=== PATIENT | female | born 1965 | race Caucasian/White ===

== ENCOUNTER 2017-07-24 16:39 | Emergency (ER) | payer BC ==
[~2017-07-24] VITALS: Ht 162.6 cm; Wt 73.0 kg
[2017-07-24 16:46] VITALS: BP 159/85
[2017-07-24] MEDS ORDERED: LIDOcaine 1.5% w/epinephrine 1:200,000 5ml ampul IJ ONE (17:00)
[2017-07-24] MEDS ORDERED: TETanus/Pertussis (Acell)/Diphther VAC/PF (Tdap-Adult) 0.5ml syringe IM ONE (17:00)
[2017-07-24] MEDS ORDERED: acetaminophen 325mg tablet PO ONE (17:55)
== END 2017-07-24 18:03 | disposition home or self-care (01) ==
LOC: ER 16:40
DX: S01.81XA Laceration without foreign body of other part of head, initial encounter (principal); W01.0XXA Fall on same level from slipping, tripping and stumbling without subsequent striking against object, initial encounter; Y93.89 Activity, other specified; Y92.89 Other specified places as the place of occurrence of the external cause; Y99.8 Other external cause status
CPT/HCPCS: 12013; 90471; 90715; 99283; A6449; J3490

== ENCOUNTER 2021-10-26 06:37 | Day surgery (SDC) | payer BC ==
[2021-10-21 15:44] LABS: ALBUMIN 3.9 G/DL (3.4-5.0); ALBUMIN/GLOBULIN RATIO 1.2 (1.1-1.5); ALKALINE PHOSPHATASE 94 IU/L (46-116); BLOOD UREA NITROGEN 17 MG/DL (7-18); BUN/CREATININE RATIO 21.3 (6.6-38.0); CALCIUM 8.7 MG/DL (8.5-10.1); CHLORIDE 104 MMOL/L (99-107); PRE OP ALT 25 U/L (30-65); PRE OP ANION GAP 11 (8-16); PRE OP AST 20 U/L (10-37); PRE OP BILIRUB, TOTAL 0.3 MG/DL (0.0-1.0); PRE OP GLUCOSE 88 MG/DL (70-104); PRE OP POTASSIUM 3.8 MMOL/L (3.4-5.1); PRE OP SODIUM 141 MMOL/L (135-145); TOTAL CARBON DIOXIDE 25.7 MMOL/L (24-32); TOTAL PROTEIN 7.1 G/DL (6.4-8.2); eGFR 74 ML/MIN
[2021-10-21 15:51] LABS: BASOPHILS # (AUTO) 0.1 X10'3 (0-0.2); BASOPHILS % (AUTO) 0.8 % (0-1); EOSINOPHILS # (AUTO) 0.5 X10'3 (0-0.9); LYMPHOCYTES # (AUTO) 2.7 X10'3 (1.1-4.8); LYMPHOCYTES % (AUTO) 39.6 % (21-51); MEAN CORPUSCULAR HEMOGLOBIN 31.5 PG (27.0-31.0); MEAN CORPUSCULAR HGB CONC 33.7 g/dL (33.0-36.5); MEAN CORPUSCULAR VOLUME 93.4 FL (78-98); MEAN PLATELET VOLUME 9.3 FL (7.4-10.4); MONOCYTES # (AUTO) 0.3 X10'3 (0-0.9); MONOCYTES % (AUTO) 4.5 % (2-12); NEUTROPHILS # (AUTO) 3.2 X10'3 (1.8-7.7); NEUTROPHILS % (AUTO) 48.1 % (42-75); PRE OP HEMOGLOBIN 13.8 g/dL (12.0-16.0); PRE OP PLATELET COUNT 255 X10'3 (140-440); RED BLOOD COUNT 4.39 X10'6 (4.20-5.60); RED CELL DISTRIBUTION WIDTH 12.8 % (11.5-14.5)
[~2021-10-26] VITALS: Ht 162.6 cm; Wt 78.8 kg
[~2021-10-26 06:37] MED LIST: ATOR10TA PO; DOCUMENT DATE & TIME OF BETA-BLOCKER PO ONE; GABA300C PO; PROP40SO PO; TOPI50TA PO; ceFAZolin inj. 2,000 MG in dextrose 5%-water 100 ML IV ONE; famotidine 20mg tablet PO ONE; ringers solution, lacted 1,000 ML IV SCH
[2021-10-26 06:50] VITALS: BP 157/75
[2021-10-26] MEDS ORDERED: LIDOcaine 1% (10mg/ml) 2ml vial ONE (07:49)
[2021-10-26] MEDS ORDERED: BUPIVAcaine/PF 2.5mg/ml (0.25%) 10ml vial ONE (08:05)
[2021-10-26] MEDS ORDERED: RISA150S2 SQ (08:24)
[2021-10-26] MEDS ORDERED: LIDOcaine 0.5% (5mg/ml) 50ml vial ONE (09:35)
[2021-10-26] MEDS ORDERED: fentaNYL/PF 50MCG/1 ML 2ML syringe ONE (10:15)
[2021-10-26] MEDS ORDERED: midazolam 1 mg/ML 2ml injection ONE (10:16)
[2021-10-26] MEDS ORDERED: ondansetron/PF 4mg/2ml inj IV PRN (11:15)
[2021-10-26] MEDS ORDERED: morphine 4 MG/ML inj SYRINge IV PRN (11:15)
[2021-10-26] MEDS ORDERED: proCHLORperazine 10 MG/2 ml inj IV PRN (11:15)
[2021-10-26] MEDS ORDERED: morphine 2 MG/ML inj. syringe IV PRN (11:15)
[2021-10-26] MEDS ORDERED: meperidine/PF 25mg/ml syringe IV PRN ×3 (11:15)
[2021-10-26] MEDS ORDERED: ringers solution, lacted 1,000 ML IV SCH (11:15)
[2021-10-26] MEDS ORDERED: propofol inj 20 ML IV ONE (11:25)
[2021-10-26 11:32] VITALS: BP 158/85
--- NOTE | 2021-10-26 11:32 | NUR ---
Received from OR via [facility], accompanied by Anesthesiologist DENISSE and report given by Anesthesiolgist. PT AAOX4, NO COMPLAINTS OF PAIN, ON RA. VSS. DRESSING TO LEFT WRIST CLEAN DRY AND INTACT. Addendum: 10/26/21 at 1147 by Hubert Levy RN Amended: Links added.
[2021-10-26 11:40] VITALS: BP 150/78
[2021-10-26 11:50] VITALS: BP 144/79
[2021-10-26 12:00] VITALS: BP 142/79
--- NOTE | 2021-10-26 12:12 | NUR ---
PT OUT OF RR VIA WHEELCHAIR, PT AAOX4, INDEPENDENT IN AMBULATION, STEADY NARROW GAIT. NO COMPLAINTS OF PAIN, DC PAPERWORK AND VERBAL DC PROVIDED, QUESTIONS ADDRESSED. IV REMOVED. TO POV WITH LAP MACHINE OPERATOR, WITHOUT INCIDENT Addendum: 10/26/21 at 1227 by Hubert Levy RN Amended: Links added.
== END 2021-10-26 12:12 | disposition home or self-care (01) ==
LOC: PAS 06:37
PROVIDERS: ATTEND Orthopaedic Surgery Hand Surgery
DX: M72.0 Palmar fascial fibromatosis [Dupuytren] (principal); Z79.899 Other long term (current) drug therapy; Z90.710 Acquired absence of both cervix and uterus; Z98.890 Other specified postprocedural states; I10 Essential (primary) hypertension; Z87.891 Personal history of nicotine dependence; Z72.89 Other problems related to lifestyle
CPT/HCPCS: 26123; 26125; 36415; 80053; 82948; 85025; 87811; A6222; J0690; J2250; J2704; J3010; J3490; J7030; J7060; J7120; Z7506; Z7512; A4215; A4618; A6449; A7000

== ENCOUNTER → 2023-09-09 | Outpatient (CLI) | payer BC ==
[~2023-09-09] MED LIST changes: -DOCUMENT DATE & TIME OF BETA-BLOCKER PO ONE; +RISA150S2 SQ; -ceFAZolin inj. 2,000 MG in dextrose 5%-water 100 ML IV ONE; -famotidine 20mg tablet PO ONE; -ringers solution, lacted 1,000 ML IV SCH
== END | disposition home or self-care (01) ==
LOC: RAD 14:40
PROVIDERS: ATTEND Otolaryngology
DX: R13.12 Dysphagia, oropharyngeal phase (principal)
CPT/HCPCS: 74230

== ENCOUNTER 2023-09-24 07:19 | Outpatient (CLI) | payer BC | END 2023-09-24 23:59 | disposition home or self-care (01) | LOC: MRI 07:19 | PROVIDERS: ATTEND Pediatrics Sports Medicine | DX: M47.817 Spondylosis without myelopathy or radiculopathy, lumbosacral region (principal); M51.37 Other intervertebral disc degeneration, lumbosacral region; M54.50 Low back pain, unspecified; M46.1 Sacroiliitis, not elsewhere classified | CPT/HCPCS: 72148 ==

== ENCOUNTER 2024-11-28 13:48 | Observation (INO) | payer BC ==
[~2024-11-28] VITALS: Ht 162.6 cm; Wt 56.8 kg
--- NOTE | 2024-11-28 14:30 | ELECTROCARDIOGRAPH REPORT ---
[facility] Test Date: 2024-11-28 Test Time: 13:53:16 Pat Name: SANNA PENALOZA Department: EMERGENCY ROOM [id number] Room: Gender: F Investigator Cash Shortage: SHIVAM : 1965 Requested By: CATRACHITO DYER Order Number: [id number] Reading MD: Measurements Intervals [place] Rate: 59 P: -16 NE: 133 QRS: -2 QRSD: 149 T: 1 QT: 440 QTc: 436 Interpretive Statements Sinus bradycardia Multiple ventricular premature complexes IVCD, consider atypical RBBB Probable left ventricular hypertrophy Inferior infarct, old Baseline wander in lead(s) V5,V6 Please click the below link to view image of tracing.
[2024-11-28 14:38] LABS: MEAN PLATELET VOLUME 9.6 FL (7.4-10.4); RED CELL DISTRIBUTION WIDTH 12.6 % (11.5-14.5)
--- NOTE | 2024-11-28 14:40 | RADIOLOGY REPORT ---
DI CHEST,SINGLE VIEW, HISTORY: CP COMPARISON: None None TECHNICAL DATA: 1 view of the chest was obtained. FINDINGS: Lines and tubes: None Cardiomediastinal silhouette: normal Pulmonary vasculature: normal Lung expansion: normal Lung airspace: normal Lung interstitium: normal Pleura: normal Pneumothorax: no Bones: Unremarkable Other: no IMPRESSION: No acute intrathoracic abnormality.
[2024-11-28 14:49] LABS: CREATININE 0.70 MG/DL (0.40-0.90); PRO BRAIN NATRIURETIC PEPTIDE 263 PG/ML (0-125); TOTAL CARBON DIOXIDE 30.6 MMOL/L (24-32); eCRCL 73 ML/MIN; eGFR 85 ML/MIN
--- NOTE | 2024-11-28 15:01 | Physician Documentation ---
History of Present Illness General Chief Complaint: Chest Pain Stated Complaint: CP Time Seen by MD: 15:01 Primary Medical Doctor: nadya villafuerte History of Present Illness Initial Comments 59-year-old female complains of an episode of substernal chest pain occurred today and proximally 10 30 this morning. The patient had substernal chest pressure that radiates up into her jaw and to her right side of her neck into the right shoulder. Patient states she has no significant history of cardiac disease. She does have some family history of her father having significant cardiac disease as well as his she has a history of hypertension in the past. Patient states her symptoms resolved within about 45 minutes she had significant diaphoresis during the episode. The patient is scheduled to see Dr. Varma as an outpatient. She states her last stress test was 10 years ago. Patient's symptoms have significantly improved. Currently she is chest pain-free she did have some slight pleuritic component to her chest pain. Medication Reconciliation Allergies: Coded Allergies: No Known Allergies (Unverified , 07/24/17) Scheduled Baclofen (Baclofen), 1 TAB PO HS, (Reported) Gabapentin (Neurontin), 3 CAP PO HS, (Reported) Hydroxychloroquine Sulfate (Plaquenil), 1 TAB PO DAILY, (Reported) Hydroxyzine Hcl (Atarax), 1 TAB PO HS, (Reported) Losartan Potassium (Losartan Potassium), 1 TAB PO DAILY Meloxicam (Meloxicam), 1 TAB PO DAILY, (Reported) Pantoprazole Sodium (Pantoprazole Sodium), 40 MG PO BKF Risankizumab-Rzaa (Skyrizi), 1 APPLIC SQ [id number], (Reported) Trazodone HCl (Trazodone HCl), 1 TAB PO HS, (Reported) Discontinued Medications Atorvastatin Calcium (Lipitor), 1 TAB PO DAILY, (Reported) Discontinued Reason: patient no longer taking Gabapentin (Neurontin), 1 CAP PO HS, (Reported) Discontinued Reason: patient no longer taking Propranolol HCl (Propranolol HCl), 1 TAB PO BID, (Reported) Discontinued Reason: patient no longer taking Topiramate (Topamax), 1 TAB PO BID, (Reported) Discontinued Reason: patient no longer taking Past Medical History Past Medical History: No Pertinent History Past Surgical History: noncontributory Lives with: Spouse Lives In: Home Review of Systems All Other Systems at this time: Reviewed and Negative Physical Exam Physical Exam Vital Signs: Heart Rate: 57, Respiratory Rate: 18, BP: 152/67, Pulse Oximetry: 100, Weight: 56.820 Physical Exam VITALS: Reviewed and as above. GENERAL: Alert, no apparent distress. HEENT: Normocephalic, atraumatic, PERRL, EOMI, dry mucosa, no erythema RESPIRATORY: Lungs clear, normal breath sounds, no respiratory distress. CHEST: No accessory muscle use, no retractions CV: Regular rate, rhythm, no edema, no murmur, No: JVD GI: Soft, non-tender, bowels sounds present, no rebound, guarding, or rigidity BACK: No CVA tenderness, or swelling MUSCULOSKELETAL: No deformities, no edema SKIN: Warm and dry, no rash NEURO: Oriented x4, No motor or sensory deficit PSYCH: Normal mood and affect, no agitation Progress Results/Orders Results/Orders Orders - CATRACHITO SCHROEDER MD Chest,Single View (11/28/24 13:59) Monitor (11/28/24 13:59) Saline Lock (11/28/24 13:59) Oxygen (11/28/24 13:59) Page Hospitalist (11/28/24 15:43) Fill Out Med Reconciliation (11/28/24 15:43) Completed Orders - CATRACHITO SCHROEDER MD Chest,Single View (11/28/24 13:59) Cbc/Diff (11/28/24 13:59) BMP (11/28/24 13:59) PBNP (11/28/24 13:59) Electrocardiogram (11/28/24 13:59) Hs Troponin I W Calculations (11/28/24 13:59) Hs Troponin I W Calculations (11/28/24 15:59) Hs Troponin I W Calculations (11/28/24 16:59) Aspirin 81mg Chew Tablet (Aspirin 81mg C (11/28/24 15:35) Vital Signs 11/28/24 11/28/24 11/28/24 13:53 15:12 16:12 Pulse 57 52 52 Resp 18 13 12 B/P (MAP) 152/67 155/70 (98) 138/60 (86) Pulse Ox 100 100 100 O2 Flow Rate 0 0 Laboratory Tests Test 11/28/24 13:57 11/28/24 15:59 White Blood Count 7.8 Red Blood Count 4.26 Hemoglobin 13.3 Hematocrit 40.3 Mean Corpuscular Volume 94.4 Mean Corpuscular Hemoglobin 31.2 H Mean Corpuscular Hemoglobin Concent 33.1 Red Cell Distribution Width 12.6 Platelet Count 230 Mean Platelet Volume 9.6 Neutrophils (%) (Auto) 62.1 Lymphocytes (%) (Auto) 29.3 Monocytes (%) (Auto) 5.3 Eosinophils (%) (Auto) 2.7 Basophils (%) (Auto) 0.6 Neutrophils # (Auto) 4.8 Lymphocytes # (Auto) 2.3 Monocytes # (Auto) 0.4 Eosinophils # (Auto) 0.2 Basophils # (Auto) 0.0 CBC Comment Sodium Level 141 Potassium Level 3.4 L Chloride Level 105 Carbon Dioxide Level 30.6 Anion Gap 5 L Blood Urea Nitrogen 20 H Creatinine 0.70 Estimated GFR/1.73 m2 85 BUN/Creatinine Ratio 28.6 H Glucose Level 90 Calcium Level 8.5 Troponin I High Sensitivity 6 8 Pro-B-Type Natriuretic Peptide 263 H Albumin 3.8 Chemistry Comments Troponin I High Sens Percent Delta 33 Troponin I Hi Sens Absolute Change 2 EKG/XRAY/CT/US/VASC/MRI Chest X-Ray : Additional Comments Patient: SANNA PENALOZA Medical Record: [id number] [facility] : 1965, Age: 59 Sex: Female Location: ER Patient Status: REG ER Service Date/Time: 11/28/241358 Ordering Physician: CATRACHITO SCHROEDER MD Exam: CHEST,SINGLE VIEW DI CHEST,SINGLE VIEW, HISTORY: CP COMPARISON: None None TECHNICAL DATA: 1 view of the chest was obtained. FINDINGS: Lines and tubes: None Cardiomediastinal silhouette: normal Pulmonary vasculature: normal Lung expansion: normal Lung airspace: normal Lung interstitium: normal Pleura: normal Pneumothorax: no Bones: Unremarkable Other: no IMPRESSION: No acute intrathoracic abnormality. Electronically Signed by:PARRISH WILLIAMSON MD Date & Time: 11/28/241436 Dictated by: PARRISH WILLIAMSON MD Dictation date and time: 11/28/24 1437 Primary Care Provider: NO PRIMARY CARE PROVIDER cc: CATRACHITO SCHROEDER MD ~ Heart Score: Heart Score Response (Comments) Value History Moderate Suspicious 1 EKG Repolarization Disturb 1 Age 45-64 1 Risk Factors 1 or 2 risk factors 1 Troponin Normal limit 0 Total 4 Medical Decision Making Additional information obtaine: old records Findings The patient's EKG demonstrates a sinus bradycardia rate of 59 with a left axis deviation there are multiple PVCs there was some nonspecific ST abnormalities. There was no ST elevation or significant ST depression appreciated the patient's EKG was interpreted at 13 55. The patient presented with chest pain, she does have a strong family history of cardiac disease the patient has a nondiagnostic EKG there was no evidence of ST-elevation or significant ST-depression. Given the patient's age and risk factors this shows and was made to admit the patient for further evaluation. The patient's prior hospitalizations have been reviewed. The patient's pulse oximetry was interpreted as normal and her nutrition intern was interpreted as sinus bradycardia case was discussed with the hospitalist patient will be admitted to the hospitalist Differential Diagnosis Pulmonary embolism, and aortic dissection, musculoskeletal pain, GERD, pneumonia. Departure Admitted to Inpatient Unit: yes, to hospitalist Impression: Primary Impression: Chest pain Qualified Codes: R07.9 - Chest pain, unspecified Referrals: NO PRIMARY CARE PROVIDER (PCP) Prescriptions Losartan Potassium (Losartan Potassium) 50 Mg Tablet 1 TAB PO DAILY for 30 Days, #30 TAB 0 Refills Prov: SEBASTIAN WASSERMANP 11/29/24 Pantoprazole Sodium (Pantoprazole Sodium) 40 Mg Tablet.dr 40 MG PO BKF for 30 Days, #30 TAB.SR Prov: SEBASTIAN WASSERMAN [facility] 11/29/24 Signature Scribe Signature: No scribe Attestation: The note accurately reflects work and decisions made by me.Catrachito Schroeder MD 11/30/24 05:38 CATRACHITO SCHROEDER MD Nov 28, 2024 15:01
[2024-11-28] MEDS ORDERED: HYDROcodone/acetaminophen 10/325mg tab PO PRN (16:10)
[2024-11-28] MEDS ORDERED: HYDROcodone/acetaminophen 5mg/325mg tablet PO PRN (16:10)
[2024-11-28] MEDS ORDERED: aminophylline 250mg/10ml inj. IV PRN (16:10)
[2024-11-28] MEDS ORDERED: mag hydrox/Alum hydrox/simeth 30ml oral suspension PO PRN (16:10)
[2024-11-28] MEDS ORDERED: ondansetron 4mg rapidly disintigrating tab PO PRN (16:10)
[2024-11-28] MEDS ORDERED: ondansetron/PF 4mg/2ml inj IV PRN (16:10)
[2024-11-28] MEDS ORDERED: metoprolol tartrate 1mg/ml inj IV PRN (16:10)
[2024-11-28] MEDS ORDERED: magnesium sulf-water 2g/50mL 50 ML IV PRN (16:10)
[2024-11-28] MEDS ORDERED: magnesium hydroxide 30ml (MOM) UD suspension PO PRN (16:10)
[2024-11-28] MEDS ORDERED: magnesium sulf-water 4G/100mL 100 ML IV PRN (16:10)
[2024-11-28] MEDS ORDERED: potassium Cl 40MEQ/1/2NS 520ml 520 ML IV PRN (16:10)
[2024-11-28] MEDS ORDERED: potassium Cl 20 mEq SR tablet PO PRN (16:10)
[2024-11-28] MEDS ORDERED: hydrALAZINE 20mg/ml inj. IV PRN (16:15)
--- NOTE | 2024-11-28 16:19 | HISTORY AND PHYSICAL ---
History & Physical Providers to CC ~ History of Present Illness Reason for Admit\Complaint: Chest pain History of Present Illness Nakia Moe is a 59-year-old female with a past medical history of hypertension, hyperlipidemia, migraine, lupus who presented to the ED with chief complaint of acute onset substernal chest pain radiating to right upper extremity and right jaw which lasted for 1 hour today. Patient denies history of anxiety disorder or chest pain being associated with food intake. Patient has a first-degree family history of CAD. Patient denies prior [place]/CAD, CVA, cardiac arrhythmia, DVT/PE, or GIB. Patient denies palpitations, shortness of breath, abdominal pain, n/v/d, fever, chills, dysuria. Patient is to be admitted for further workups and treatment. Allergies: Coded Allergies: No Known Allergies (Unverified , 07/24/17) Home Medications Home Medications Active Reported Skyrizi (Risankizumab-Rzaa) 150 Mg/1 Ml Syringe 1 Applic SQ [id number] Lipitor (Atorvastatin Calcium) 10 Mg Tablet 1 Tab PO DAILY Propranolol HCl 40 Mg/5 Ml Solution 1 Tab PO BID Neurontin (Gabapentin) 300 Mg Capsule 1 Cap PO HS Past Medical History Past Medical History Denies Past Surgical History Surgical History Comment Denies Past Social History Social History Comment Alcohol: Occasionally Tobacco: Former smoker of 25 pack year history, quit 10 years ago Illicit drug use: Denies Living situation: Lives at home with spouse ROS ROS Other than positives in HPI, all 14 review of systems are negative Exam Vitals: Vital Signs Date Time Temp Pulse Resp B/P (MAP) Pulse Ox O2 Delivery O2 Flow Rate FiO2 11/28/24 16:12 52 12 138/60 (86) 100 0 General: A&Ox 3, NAD HEENT: Normocephalic, PERRLA Neck: Supple, trachea midline, no JVD Chest: Clear to auscultation bilaterally Cardiovascular: RRR, S1&S2 Abdomen: Soft and nontender Extremities: No cyanosis/clubbing/or edema Central Nervous System: CN II-XII intact, no focal deficits Musculoskeletal: No paraspinal muscle tenderness, no muscle spasm Skin: Warm and intact Diagnostic Data Last Recorded Lab Results: 11/28/24 1357 11/28/24 1357 Additional Plan Assessment & Plan ACS- to rule out Hypertension Hyperlipidemia -trops negative, EKG sinus at 59bpm, multiple PVC, no ST elevation/depression, HEART score 4 -start prn hydralazine, nitroglycerine, follow TTE, Lexiscan, lipid panel DVT/VTE prophylaxis: heparin Code status: Full code I spent a total of 35 minutes discussing Advanced Care Planning measures with the patient. Advance care planning: Discussed with patient the importance of advance care planning in case of emergent situation. We discussed various resuscitative measures/ ACP with the patient at the time of admission. Patient voiced understanding and patient has decided on a full code status. Date of Service: Nov 28, 2024 Billing Provider: SEBASTIAN WASSERMAN Common Visit Codes: 91842-RJMCNZS INP/OBS CARE (HIGH) Secondary Visit Codes: 62328-VKTPUXOJ CARE PLAN 30 MINUTES SEBASTIAN WASSERMAN Nov 28, 2024 16:19
[2024-11-28] MEDS ORDERED: morphine 4 MG/ML inj SYRINge IV PRN ×2 (16:26→16:27)
[2024-11-28] MEDS: PERFLUTREN PROTEIN-A MICROSPHR (Optison) 0.22 MG/ML 3ML VIAL IV ONE (16:44)
[2024-11-28] MEDS: pantoprazole 40mg Tablet.DR PO ONE (16:47)
[2024-11-28] MEDS: ringers solution, lacted 1,000 ML IV SCH (16:48)
[2024-11-28] MEDS: K and/or MAG REPLACEMENT MC SCH (20:00)
[2024-11-28] MEDS: docusate sod 100mg capsule PO SCH (20:34)
[2024-11-28] MEDS: heparin, porcine 5000 units/ml vial SQ SCH (20:34)
[2024-11-28] MEDS ORDERED: HYDR200T80 PO (20:42)
[2024-11-28] MEDS ORDERED: TRAZ-251 PO (20:42)
[2024-11-28] MEDS ORDERED: MELO-102 PO (20:42)
[2024-11-28] MEDS ORDERED: HYDR-3686 PO (20:42)
[2024-11-28] MEDS ORDERED: BACL20TA2 PO (20:42)
[2024-11-28 22:44] VITALS: BP 109/65; PULSE 52; RESP 14; TEMP 98.2; O2SAT 99
[2024-11-29] VITALS (13 sets, daily range): BP systolic 118–165; BP diastolic 50–73; PULSE 55–97; RESP 12–16; TEMP 98; O2SAT 98–100
[2024-11-29] MEDS: potassium Cl 20 mEq SR tablet PO PRN (01:44)
[2024-11-29 06:41] LABS: MEAN PLATELET VOLUME 9.7 FL (7.4-10.4); RED CELL DISTRIBUTION WIDTH 12.9 % (11.5-14.5)
[2024-11-29 06:47] LABS: CHOL/HDL RATIO 2.5 (0.00-4.99); CREATININE 0.62 MG/DL (0.40-0.90); LDL CHOLESTEROL 96 MG/DL (50-100); TOTAL CARBON DIOXIDE 30.1 MMOL/L (24-32); eCRCL 82 ML/MIN; eGFR > 90 ML/MIN
[2024-11-29] MEDS: regadenoson 0.4mg/5ml syringe IV PRN (08:42)
[2024-11-29] MEDS: pantoprazole 40mg Tablet.DR PO SCH (09:57)
[2024-11-29] MEDS: aspirin 81mg, enteric-coated 1 TAB TABLET.DR PO SCH (09:57)
--- NOTE | 2024-11-29 10:05 | RADIOLOGY REPORT ---
HISTORY: unstable angina TECHNIQUE: At peak stress, 34.6 mCi of sestamibi was administered intravenously. Soon thereafter, gated SPECT imaging of the heart was performed with the patient in the supine position. At rest, 8.3 mCi of sestamibi was administered intravenously. Soon thereafter, gated SPECT imaging of the heart was performed with the patient in the supine position. FINDINGS: The left ventricular myocardium demonstrates uniform radiotracer distribution, without perfusion defect. The left ventricular cavity is normal in size. Calculated LVEF is 63 %. No segmental wall motion abnormality. IMPRESSION: NORMAL MYOCARDIAL PERFUSION EXAM. LVEF 63 %.
[2024-11-29] MEDS ORDERED: PANT40TA54 PO (10:36)
--- NOTE | 2024-11-29 11:42 | DISCHARGE SUMMARY ---
Discharge Summary Providers to CC ~ Discharge Summary Admission Diagnosis: r/o ACS Hospital Course DATE OF ADMISSION: 11/28/24 DATE OF DISCHARGE: 11/29/24 Discharge Diagnosis\Comment: ACS- ruled out Hypertension Hyperlipidemia Operations\Procedures: None Consultants: None Complications: None Condition on DC: Stable New Medications: Losartan Potassium (Losartan Potassium) 50 Mg Tablet 1 TAB PO DAILY for 30 Days, #30 TAB 0 Refills Pantoprazole Sodium (Pantoprazole Sodium) 40 Mg Tablet.dr 40 MG PO BKF for 30 Days, #30 TAB.SR Continued Medications: Baclofen (Baclofen) 20 Mg Tablet 1 TAB PO HS for 30 Days, #90 TAB 0 Refills Gabapentin (Neurontin) 300 Mg Capsule 3 CAP PO HS for 30 Days, #90 CAP 0 Refills Hydroxychloroquine Sulfate (Plaquenil) 200 Mg Tablet 1 TAB PO DAILY for 30 Days, #60 TAB Hydroxyzine Hcl (Atarax) 25 Mg Tablet 1 TAB PO HS for anxiety for 30 Days, #60 TAB 0 Refills Meloxicam (Meloxicam) 15 Mg Tablet 1 TAB PO DAILY for 30 Days, #30 TAB 0 Refills Risankizumab-Rzaa (Skyrizi) 150 Mg/1 Ml Syringe 1 APPLIC SQ [id number] Trazodone HCl (Trazodone HCl) 50 Mg Tablet 1 TAB PO HS for 30 Days, #30 TAB 0 Refills Discharge Summary: History of Present Illness Nakia Moe is a 59-year-old female with a past medical history of hypertension, hyperlipidemia, migraine, lupus who presented to the ED with chief complaint of acute onset substernal chest pain radiating to right upper extremity and right jaw which lasted for 1 hour today. Patient denies history of anxiety disorder or chest pain being associated with food intake. Patient has a first-degree family history of CAD. Patient denies prior [place]/CAD, CVA, cardiac arrhythmia, DVT/PE, or GIB. Patient denies palpitations, shortness of breath, abdominal pain, n/v/d, fever, chills, dysuria. Patient is to be admitted for further workups and treatment. Hospital Course Diagnostic findings were notable for negative troponin series, EKG sinus at 59bpm with multiple PVC, no ST elevation/depression, HEART score of 4, TTE revealing normal overall systolic function with LVEF of 55%, RVSP 30mmHg, no significant valvular heart disease. Well's score 0. Patient underwent Lexiscan with negative findings. Patient did not experience further complications throughout the entire hospital stay and made a good recovery. Patient was seen and examined on the day of discharge. Patient no longer reports chest pain. On day of discharge, vss and labs unremarkable. All labs, diagnostic workups, discharge plan discussed with patient in details during visit before discharge. All questions and concerns answered to the best of my professional knowledge. Patient is to be discharged to home to self and to follow up with PCP within 2 weeks. Assessment & Plan ACS- to rule out Hypertension Hyperlipidemia -trops negative, EKG sinus at 59bpm, multiple PVC, no ST elevation/depression, HEART score 4 -start prn hydralazine, nitroglycerine, follow TTE, Lexiscan, lipid panel *Problems/Diagnosis: (1) Chest pain Total Time Spent on D/C: > 30 Minutes Date of Service: Nov 29, 2024 Billing Provider: SEBASTIAN WASSERMAN Common Visit Codes: 05160-AKF/OBS DISCH DAY >30min SEBASTIAN WASSERMAN Nov 29, 2024 11:42
[2024-11-29] MEDS ORDERED: LOSA50TA64 PO (11:47)
--- NOTE | 2024-11-29 18:49 | CARDIOLOGY REPORT ---
APPROVED REPORT EXAM: Comprehensive 2D, Doppler, and color-flow Echocardiogram. Patient Location: ED2 Heart Rate: 50 bpm Rhythm: Sinus Bradycardia Indications Chest Pain Troponin 6 Pro BNP 263 Data Warehouse Developer is Shakira Varma MD No previous echo 2D Dimensions LA Diam 3.7 cm IVSd 1.0 (0.7-1.1cm) LVDd 4.9 cm PWd 1.0 (0.7-1.1cm) IVSs 1.3 (0.8-1.2cm) LVDs 3.3 (2.5-4.0cm) Aortic Root(2D) 2.9 cm PWs 1.1 (0.8-1.2cm) LVOT Diameter 2.27 (1.8-2.4cm) LVEF(%) 60.9 (>50%) Ao Asc Diam. 2.75 cm IVC 18.00 mm FS (%) 32.6 % SV 68.1 ml CO 3.3 L/min M-Mode Dimensions MV EPSS 0.9 (<0.5cm) Aortic Valve AoV Peak Yousuf. 135.7 cm/s AoV VTI 31.5 cm AO Peak GR. 7.4 mmHg AO Mean GR. 3 mmHg LVOT VTI 21.35 cm LVOT Peak Yousuf. 83.1 cm/s ANDREAS(VTI)/BSA 2.75 cm2/m2 ANDRESA (VTI) 2.75 cm2 AV DI 0.68 % Mitral Valve MV E Velocity 95.9 cm/s MV Peak Gr. 4 mmHg MV DECEL TIME 168 ms MV A Velocity 66.8 cm/s MV PHT 76 ms E/A Ratio 1.4 MVA (PHT) 2.89 cm2 MV VMax 101.7 cm/s TDI Medial E' P. V 8.29 cm/s E/Medial E' 11.6 Tricuspid Valve TR P. Velocity 221 cm/s RAP ESTIMATE 10 mmHg TR Peak Gr. 20 mmHg RVSP 30 mmHg Pulmonary Vein S1 Velocity 58.4 cm/s D2 Velocity 38.8 cm/s PVa Velocity 25.4 cm/s PVa Duration 84 msec LEFT VENTRICLE Normal LV size and wall thickness. Overall systolic function is normal. LVEF is 55%. RIGHT VENTRICLE RV appears normal in size and contractility. ATRIA The left atrium size is normal. AORTIC VALVE Trileaflet AV appears sclerotic without stenosis. No insufficiency. MITRAL VALVE MV is thickened with mild annular thickening and no stenosis. Trace to mild mitral regurgitation. TRICUSPID VALVE The tricuspid valve is normal in structure. Trace tricuspid regurgitation. PULMONIC VALVE The pulmonary valve is normal in structure. Trace pulmonic insufficiency. GREAT VESSELS The aortic root is normal in size. The ascending aorta is normal in size. The IVC is normal in size and collapses >50% with inspiration. PERICARDIUM There is no pericardial effusion. Other Information Study Quality: Adequate Conclusion Normal LV size and wall thickness. Overall systolic function is normal. LVEF is 55%. RV appears normal in size and contractility. The left atrium size is normal. Trileaflet AV appears sclerotic without stenosis. No insufficiency. MV is thickened with mild annular thickening and no stenosis. Trace to mild mitral regurgitation. The tricuspid valve is normal in structure. Trace tricuspid regurgitation. The pulmonary valve is normal in structure. Trace pulmonic insufficiency. There is no pericardial effusion.
== END 2024-11-29 12:15 | disposition home or self-care (01) ==
LOC: ER 13:49 → ED HOLD 16:12 → ORTHO 4S 16:12 → UNDOADMIN 16:12 → ED HOLD 22:48 → ORTHO 4S 22:48
PROVIDERS: ADMIT Nurse Practitioner Family; ATTEND Nurse Practitioner Family
DX: R07.89 Other chest pain (principal); I10 Essential (primary) hypertension; F41.9 Anxiety disorder, unspecified; E78.5 Hyperlipidemia, unspecified; G43.909 Migraine, unspecified, not intractable, without status migrainosus; I49.3 Ventricular premature depolarization; R60.1 Generalized edema; Z79.899 Other long term (current) drug therapy; Z98.890 Other specified postprocedural states
CPT/HCPCS: 36415; 71045; 78452; 80048; 80053; 80061; 83036; 83735; 83880; 84484; 85025; 87081; 93005; 93017; 93306; 96360; 96361; 96372; 99285; A9500; G0378; J1644; J2785; J7120